=== PATIENT | male | born 1995 ===

== ENCOUNTER 2019-10-25 14:27 | Emergency (ER) | payer BC, OTHER ==
--- NOTE | 2019-10-25 15:59 | UC ---
FLU HPI - HPI Summary HPI Summary: 24-year-old male presents with 2 week history of fever, headache, body aches, fatigue, general malaise, nasal congestion, runny nose, sore throat, and occasionally productive cough. States his symptoms were improving but then returned. No known contact with persons isolated for or diagnosed with COVID- 19 however he does report traveling to [facility] on 10/13/2019 until 2019. He believes that the initial symptoms began on 10/14/2019 and returned today. States symptoms never completely resolved. His significant other has been ill with similar symptoms over the same period of time. Denies ear pain, dysphagia, chest pain, shortness of breath, abdominal pain, nausea, vomiting, or diarrhea. - History of Current Complaint Chief Complaint: UCRespiratory Stated Complaint: FEVER CHILLS HEADACHE SORE THROAT Time Seen by Provider: 10/25/19 15:33 Hx Obtained From: Patient Pain Intensity: 7 - Allergy/Home Medications Allergies/Adverse Reactions: Allergies Allergy/AdvReac Type Severity Reaction Status Date / Time No Known Allergies Allergy Verified 10/25/19 15:44 Home Medications: Home Medications Dm/PE/Acetaminophen/Doxylamine [Vicks Dayquil-Nyquil Cold-Flu] 1 tab PO ONCE PRN 10/25/19 [History Confirmed 10/25/19] Doxycycline Hyclate 100 mg PO BID 10 Days #20 tablet 10/25/19 [Rx] PMH/Surg Hx/FS Hx/Imm Hx Previously Healthy: Yes - Denies significant PMH - Surgical History Surgical History: None - Family History Known Family History: Positive: Respiratory Disease - Father - asthma - Social History Occupation: Employed Full-time Lives: With Family Alcohol Use: Rare Substance Use Type: Marijuana Smoking Status (MU): Never Smoked Tobacco Review of Systems All Other Systems Reviewed And Are Negative: Yes Constitutional: Positive: Fever, Chills, Fatigue Skin: Negative: Rash Eyes: Negative: Drainage, Eye Redness ENT: Positive: Sore Throat, Nasal Discharge, Sinus Congestion. Negative: Ear Ache, Sinus Pain/Tenderness Respiratory: Positive: Cough. Negative: Shortness Of Breath Cardiovascular: Negative: Chest Pain Gastrointestinal: Negative: Abdominal Pain, Vomiting, Diarrhea, Nausea Genitourinary: Positive: Negative Musculoskeletal: Positive: Myalgia Neurological/Mental Status: Positive: Headache Is Patient Immunocompromised?: No Physical Exam - Summary Physical Exam Summary: Physical exam limited due to telemedicine out of concern for COVID-19 however did not appear to be in any acute respiratory distress. Mayi Chris RN present in room at time of health assessment. Triage Information Reviewed: Yes Vital Signs Reviewed: Yes Flu Course/Dx - Course Course Of Treatment: 24-year-old male presents with 2 week history of fever, headache, body aches, fatigue, general malaise, nasal congestion, runny nose, sore throat, and occasionally productive cough. States his symptoms were improving but then returned. No known contact with persons isolated for or diagnosed with COVID- 19 however he does report traveling to [facility] on 10/13/2019 until 2019. He believes that the initial symptoms began on 10/14/2019 and returned today. States symptoms never completely resolved. His significant other has been ill with similar symptoms over the same period of time. Denies ear pain, dysphagia, chest pain, shortness of breath, abdominal pain, nausea, vomiting, or diarrhea. Patient had a mildly elevated temperature of 100.3 F with a corresponding mild tachycardia otherwise vital signs stable. Patient's exam was limited to telemedicine out of concern for possible COVID-19 infection however patient appeared to be in no acute respiratory distress. Rapid strep test and rapid flu tests were negative. Reviewed results with the patient and we discussed that with his recent travel to [facility] I am recommending testing for the COVID-19 virus and have him self isolated home pending the results. We also discussed that with the improving and worsening of symptoms that I cannot completely rule out the possibility of a secondary bacterial infection therefore I'm going to start him on doxycycline 100 mg twice a day 10 days as well as recommend symptomatic treatment. Patient did not have a primary care provider therefore I provided him with the contact information for the [facility] physician referral service to assist him with establishing with a provider. Anticipatory guidance and warning symptoms were reviewed with the patient. Verbalizes understanding and agrees with plan of care. - Differential Dx/Diagnosis Differential Diagnosis/HQI/PQRI: Bronchitis, Influenza, Pneumonia, Upper Respiratory Infection, Other - COVID-19 Provider Diagnosis: URI with cough and congestion Discharge ED - Sign-Out/Discharge Documenting (check all that apply): Patient Departure All imaging exams completed and their final reports reviewed: No Studies - Discharge Plan Condition: Stable Disposition: HOME Prescriptions: Doxycycline Hyclate 100 mg PO BID 10 Days #20 tablet Patient Education Materials: Upper Respiratory Infection (ED) Forms: COVID-19 Tested & Isolation Referrals: No Primary Care Phys,[facility]OPCP [Primary Care Provider] - [facility] [place] [facility] REFERRAL [Outside] Additional Instructions: The rapid strep test and rapid flu test performed in the clinic today were negative. With your recent travel to [facility] there is a concern for possible COVID-19 exposure therefore we have tested you today. Considering the duration of your symptoms however I cannot rule out the possibility of a possible bacterial infection therefore we will start to on an antibiotic at this time. Start doxycycline 100 mg twice a day for 10 days. Do not drink milk, eat milk products, or takes supplements containing calcium for at least 2 hours before after taking this medication as the calcium can affect the absorption. This antibiotic will also make you more sensitive to the sunlight therefore it is recommended that you try to avoid sun exposure while taking. If you must be outdoors take appropriate precautions including sunscreen, long sleeves, and hat. Drink plenty of fluids to avoid dehydration especially if you are running any fever. Use a saline rinse kit such as Neti Pot or NeilMed at least twice a day to help thin secretions and promote drainage of the sinuses. Use fluticasone (Flonase) nasal spray 2 sprays each nostril once daily. Take over the counter acetaminophen (Tylenol) according to directions as needed for pain or fever. Use salt water gargles several times a day if you have a sore throat. You may also use Chloraseptic spray or Cepacol lonzenges according to directions which contain a numbing medication and can provide some temporary relief from your sore throat. Please refer to the instructions for COVID-19 testing and isolation. You will need to remain on home isolation until you have been cleared by the public health department. Your provider to with the contact information for the [facility] physician referral service to assist you with establishing with a primary care provider if needed. Seek immediate medical attention in the emergency room if you have fever greater than 100.5 F despite taking acetaminophen or ibuprofen, have chest pain , difficulty breathing, are unable to swallow, or have any worsening of symptoms. - Billing Disposition and Condition Condition: STABLE Disposition: Home
[2019-10-25] MEDS ORDERED: Acetaminophen TAB* 325 MG PO ONE (16:17)
[2019-10-25 16:36] LABS: Influenza A Molecular Negative (Negative); Influenza B Molecular Negative (Negative)
== END 2019-10-25 17:02 | disposition home or self-care (01) ==
LOC: UCEAST 14:27
DX: J06.9 Acute upper respiratory infection, unspecified (principal); R05 Cough; R09.89 Other specified symptoms and signs involving the circulatory and respiratory systems; R50.9 Fever, unspecified; R00.0 Tachycardia, unspecified; Z20.828 Contact with and (suspected) exposure to other viral communicable diseases
CPT/HCPCS: 87651; 99203; A9270-GY; G0463; U0002